=== PATIENT | female | born 1940 | race Hispanic/Latino ===

== ENCOUNTER 2017-10-02 05:33 | Day surgery (SDC) | payer OTHER ==
[2017-10-01 09:10] VITALS: BP 133/63
[2017-10-01 09:31] LABS: HEMATOCRIT 34.8 % (36-48); MEAN CORPUSCULAR HEMOGLOBIN 31.4 pg (27.0-33.0); MEAN CORPUSCULAR HGB CONC 33.8 g/dL (32.0-36.0); MEAN CORPUSCULAR VOLUME 92.8 fL (79-99); PLATELET COUNT (AUTO) 161 K/uL (130-400); RED BLOOD CELL COUNT(AUTO) 3.75 MIL/uL (4.00-5.50); RED CELL DISTRIBUTION WIDTH 13.7 % (11.0-15.5); WHITE BLOOD COUNT (AUTO) 3.3 K/uL (4.8-10.8)
[2017-10-01 09:39] LABS: POTASSIUM 4.6 mmol/L (3.5-5.1)
[2017-10-01 09:41] LABS: INR 0.99 (0.85-1.15); PARTIAL THROMBOPLASTIN TIME 28.4 SEC (26.3-35.5); PROTHROMBIN TIME 10.4 SEC (9.6-11.6)
[2017-10-01 09:49] LABS: APPEARANCE,URINE Clear (CLEAR); BILIRUBIN,URINE Negative (NEGATIVE); COLOR,URINE Yellow (YELLOW); GLUCOSE, URINE (UA) Negative (NEGATIVE); KETONES,URINE Negative (NEGATIVE); LEUKOCYTE ESTERASE ,URINE Large (NEGATIVE); NITRATE,URINE Negative (NEGATIVE); OCCULT BLOOD,URINE Small (NEGATIVE); PH,URINE 7.5 (5.0-8.0); PROTEIN,URINE Negative (NEGATIVE); UROBILINOGEN,URINE 0.2 mg/dL (0.2-1.0)
[2017-10-01 10:09] LABS: BACTERIA,URINE Rare /HPF (None Seen); RBC,URINE 0-1 /HPF (0-1); SQUAMOUS EPITHELIAL CELL,UR Rare /HPF (0-2)
[~2017-10-02] VITALS: Ht 142.2 cm; Wt 55.5 kg
[2017-10-02] VITALS (20 sets, daily range): BP systolic 104–144; BP diastolic 47–85
[~2017-10-02 05:33] MED LIST: LISI-613 PO; PRAV40TA3 PO
[2017-10-02] MEDS ORDERED: GENTAMICIN SULFATE 160 MG in SODIUM CHLORIDE 0.9% 100 ML IV PRN (06:00)
[2017-10-02] MEDS ORDERED: LACTATED RINGERS 1000ML 1,000 ML IV ONE (06:15)
[2017-10-02] MEDS ORDERED: ISOVUE-370 50ML VIAL IV ONE (06:32)
[2017-10-02] MEDS ORDERED: LIDOCAINE PF 2% 5ML ABBOJECT ONE (06:55)
[2017-10-02] MEDS ORDERED: ONDANSETRON HCL 4 MG/2 ML VIAL ONE (06:55)
[2017-10-02] MEDS ORDERED: PROPOFOL 10 MG/ML 20ML VIAL IV ONE (06:55)
[2017-10-02] MEDS ORDERED: MIDAZOLAM HCL 1 MG/ML 2ML VIAL ONE (06:55)
[2017-10-02] MEDS ORDERED: FENTANYL CITRATE PF 50 MCG/1 ML 2ML VIAL ONE (06:55)
[2017-10-02] MEDS ORDERED: DEXAMETHASONE SOD PHOSPHATE 10MG/ML 1ML VIAL ONE (06:55)
[2017-10-02] MEDS ORDERED: GLYCOPYRROLATE 0.2 MG/ML 5 ML VIAL ONE (06:55)
[2017-10-02] MEDS ORDERED: EPHEDRINE SULFATE 50 MG/ML AMPULE ONE (07:02)
== END 2017-10-02 12:15 | disposition home or self-care (01) ==
LOC: DAH 05:33
PROVIDERS: ATTEND Urology
DX: N13.0 Hydronephrosis with ureteropelvic junction obstruction (principal); Z88.8 Allergy status to other drugs, medicaments and biological substances; Z79.899 Other long term (current) drug therapy; I10 Essential (primary) hypertension; M79.7 Fibromyalgia; M19.90 Unspecified osteoarthritis, unspecified site; R00.1 Bradycardia, unspecified; Z88.2 Allergy status to sulfonamides; I45.10 Unspecified right bundle-branch block
CPT/HCPCS: 36415; 52332; 71046; 74176; 74420; 80048; 81001; 85027; 85610; 85730; 87088; 93005; A4344; A4354; A4358; A4930; C1758; C1769; C2617; J1100; J2001; J2250; J2405; J2704; J3010; J3490 ×2; J7120 ×2; Q9967

== ENCOUNTER 2018-03-05 05:40 | Day surgery (SDC) | payer OTHER ==
[2018-03-04 17:18] LABS: APPEARANCE,URINE SL CLOUDY (CLEAR); BILIRUBIN,URINE NEGATIVE (NEGATIVE); COLOR,URINE YELLOW (YELLOW); GLUCOSE, URINE (UA) NEGATIVE (NEGATIVE); KETONES,URINE NEGATIVE (NEGATIVE); LEUKOCYTE ESTERASE ,URINE LARGE (NEGATIVE); NITRATE,URINE NEGATIVE (NEGATIVE); OCCULT BLOOD,URINE MODERATE (NEGATIVE); PH,URINE 6.5 (5.0-8.0); PROTEIN,URINE TRACE (NEGATIVE); UROBILINOGEN,URINE 0.2 mg/dL (0.2-1.0)
[2018-03-04 17:18] LABS: HEMATOCRIT 39.8 % (36-48); MEAN CORPUSCULAR HEMOGLOBIN 31.3 pg (27.0-33.0); MEAN CORPUSCULAR HGB CONC 33.5 g/dL (32.0-36.0); MEAN CORPUSCULAR VOLUME 93.5 fL (79-99); PLATELET COUNT (AUTO) 187 K/uL (130-400); RED BLOOD CELL COUNT(AUTO) 4.26 MIL/uL (4.00-5.50); WHITE BLOOD COUNT (AUTO) 5.2 K/uL (4.8-10.8)
[2018-03-04 17:20] VITALS: BP 148/78
[2018-03-04 17:26] LABS: CREATININE 0.9 mg/dL (0.5-1.5); POTASSIUM 4.3 mmol/L (3.5-5.1)
[2018-03-04 17:30] LABS: INR 0.98 (0.85-1.15); PARTIAL THROMBOPLASTIN TIME 28.7 SEC (26.3-35.5); PROTHROMBIN TIME 10.3 SEC (9.6-11.6)
[2018-03-04 17:40] LABS: BACTERIA,URINE Few /HPF (None Seen); SQUAMOUS EPITHELIAL CELL,UR Few /HPF (0-2); WBC,URINE 26-50 /HPF (0-1)
[~2018-03-05] VITALS: Ht 142.2 cm; Wt 49.6 kg
[2018-03-05] VITALS (16 sets, daily range): BP systolic 98–122; BP diastolic 47–56
[~2018-03-05 05:40] MED LIST changes: +GENTAMICIN SULFATE 160 MG in SODIUM CHLORIDE 0.9% 100 ML IV SCH; +LACTATED RINGERS 1000ML 1,000 ML IV SCH
[2018-03-05] MEDS ORDERED: [UNRECOGNIZED DRUG - OTHER] IV ONE (06:04)
[2018-03-05] MEDS ORDERED: GENTAMICIN IV ONE (06:04)
[2018-03-05] MEDS ORDERED: GENTAMICIN 80 MG/NS 100 ML PB 100 ML IV ONE (06:37)
[2018-03-05] MEDS ORDERED: IOHEXOL-350 75 ML VIAL IV ONE (06:47)
[2018-03-05] MEDS ORDERED: ONDANSETRON HCL 4 MG/2 ML VIAL ONE (06:55)
[2018-03-05] MEDS ORDERED: DEXAMETHASONE SOD PHOSPHATE 10MG/ML 1ML VIAL ONE (06:55)
[2018-03-05] MEDS ORDERED: MIDAZOLAM HCL 1 MG/ML 2ML VIAL ONE (06:55)
[2018-03-05] MEDS ORDERED: LIDOCAINE PF 2% 5ML ABBOJECT ONE (06:55)
[2018-03-05] MEDS ORDERED: PROPOFOL 10 MG/ML 20ML VIAL IV ONE (06:56)
[2018-03-05] MEDS ORDERED: EPHEDRINE SULFATE 50 MG/ML AMPULE ONE (07:16)
== END 2018-03-05 10:05 | disposition home or self-care (01) ==
LOC: DAH 05:40
PROVIDERS: ATTEND Urology
DX: N13.30 Unspecified hydronephrosis (principal); Z88.8 Allergy status to other drugs, medicaments and biological substances; Z79.899 Other long term (current) drug therapy; I10 Essential (primary) hypertension; M54.5 Low back pain; Z98.890 Other specified postprocedural states
CPT/HCPCS: 36415; 52332; 71046; 74176; 80048; 81001; 85027; 85610; 85730; 87088 ×2; 88300; 93005; A4344; A4358; A4600; A5113; C1758; C1769; C2617; J1100; J1580 ×2; J2001; J2250; J2405; J2704; J3490; J7120 ×2; Q9967

== ENCOUNTER 2018-09-03 09:37 | Day surgery (SDC) | payer OTHER ==
[2018-08-30 09:31] VITALS: BP 139/69
[2018-08-30 09:47] LABS: HEMATOCRIT 37.2 % (36-48); MEAN CORPUSCULAR HEMOGLOBIN 31.3 pg (27.0-33.0); MEAN CORPUSCULAR HGB CONC 33.3 g/dL (32.0-36.0); MEAN CORPUSCULAR VOLUME 94.1 fL (79-99); PLATELET COUNT (AUTO) 170 K/uL (130-400); RED BLOOD CELL COUNT(AUTO) 3.96 MIL/uL (4.00-5.50); RED CELL DISTRIBUTION WIDTH 14.3 % (11.0-15.5); WHITE BLOOD COUNT (AUTO) 3.7 K/uL (4.8-10.8)
[2018-08-30 09:49] LABS: APPEARANCE,URINE Clear (CLEAR); BILIRUBIN,URINE Negative (NEGATIVE); COLOR,URINE Yellow (YELLOW); GLUCOSE, URINE (UA) Negative (NEGATIVE); KETONES,URINE Negative (NEGATIVE); LEUKOCYTE ESTERASE ,URINE Moderate (NEGATIVE); NITRATE,URINE Negative (NEGATIVE); OCCULT BLOOD,URINE Nonhemolyzed Trace (NEGATIVE); PROTEIN,URINE Negative (NEGATIVE); UROBILINOGEN,URINE 0.2 mg/dL (0.2-1.0)
[2018-08-30 09:51] LABS: BACTERIA,URINE Rare /HPF (None Seen); RBC,URINE 0-1 /HPF (0-1); SQUAMOUS EPITHELIAL CELL,UR Rare /HPF (0-2)
[2018-08-30 10:00] LABS: CREATININE 0.9 mg/dL (0.5-1.5)
[2018-08-30 10:06] LABS: INR 0.97 (0.85-1.15); PARTIAL THROMBOPLASTIN TIME 28.6 SEC (26.3-35.5); PROTHROMBIN TIME 10.2 SEC (9.6-11.6)
--- NOTE | 2018-09-02 09:31 | NUR ---
labs abnormal labs faxed to dr. real, message left with Elise . pending call back if any further orders.
--- NOTE | 2018-09-02 09:34 | NUR ---
ekg abnormal ekg reported to dr. cardoso. message left on his cell phone, pending call back
--- NOTE | 2018-09-02 10:28 | NUR ---
EKG PER DR. AMAIRANI QUINTERO TO PROCEED WITH SX,NO FURTHER ORDERS GIVEN
--- NOTE | 2018-09-02 13:00 | NUR ---
LABS DR. COOK REVIEWED LABS, NO FURTHER ORDERS GIVEN AT THIS TIME
[2018-09-03] VITALS (14 sets, daily range): BP systolic 103–132; BP diastolic 51–67
[~2018-09-03] VITALS: Ht 144.8 cm; Wt 47.8 kg
[2018-09-03] MEDS: LACTATED RINGERS 1000ML 1,000 ML IV SCH ×2 (06:00→11:36)
[~2018-09-03 09:37] MED LIST changes: -LACTATED RINGERS 1000ML 1,000 ML IV SCH; +vitamin b PO
[2018-09-03] MEDS ORDERED: GENTAMICIN IV ONE (11:23)
[2018-09-03] MEDS ORDERED: [UNRECOGNIZED DRUG - OTHER] IV ONE (11:23)
[2018-09-03] MEDS ORDERED: IOHEXOL-350 50ML VIAL IV ONE (11:24)
[2018-09-03] MEDS ORDERED: PROPOFOL 10 MG/ML 20ML VIAL IV ONE (11:56)
[2018-09-03] MEDS ORDERED: LIDOCAINE HCL MPF 1% 5ML VIAL ONE (11:56)
[2018-09-03] MEDS ORDERED: FENTANYL CITRATE PF 50 MCG/1 ML 2ML VIAL ONE (11:56)
[2018-09-03] MEDS ORDERED: EPHEDRINE SULFATE 50 MG/ML AMPULE ONE (12:07)
[2018-09-03] MEDS ORDERED: ONDANSETRON HCL 4 MG/2 ML VIAL ONE (12:08)
--- NOTE | 2018-09-03 14:34 | NUR ---
D/C PATIENT LEFT VIA WHEELCHAIR IN PVT CAR AND RX SCRIPT GIVEN TO
--- NOTE | 2018-09-03 14:35 | NUR ---
F/U APPT. WAS INSTRUCTED TO CALL OFFICE TO MAKE F/U APPT WITH DR. COOK IN 4 WEEKS.
== END 2018-09-03 14:30 | disposition home or self-care (01) ==
LOC: SUH 09:37 → DAH 09:37 → SUH 14:30
PROVIDERS: ATTEND Urology
DX: N13.0 Hydronephrosis with ureteropelvic junction obstruction (principal); Z88.0 Allergy status to penicillin; Z88.8 Allergy status to other drugs, medicaments and biological substances; Z88.2 Allergy status to sulfonamides; Z79.899 Other long term (current) drug therapy; Z98.890 Other specified postprocedural states; I10 Essential (primary) hypertension; I45.10 Unspecified right bundle-branch block; Z79.01 Long term (current) use of anticoagulants
CPT/HCPCS: 36415; 52332; 71046; 74420; 80048; 81001; 85027; 85610; 85730; 87088; 93005; A4344; A4354; A4358; A4600; A5113; C1758 ×2; C1769 ×2; C2617; J1580; J2405; J2704; J3010; J3490 ×2; J7120; Q9967

== ENCOUNTER 2019-03-04 10:22 | Day surgery (SDC) | payer OTHER ==
[2019-03-03 10:35] VITALS: BP 121/61
[2019-03-03 10:36] LABS: HEMATOCRIT 38.2 % (36-48); MEAN CORPUSCULAR HGB CONC 33.3 g/dL (32.0-36.0); NUCLEATED RED BLOOD CELLS 0.1 % (0.0-0.19); PLATELET COUNT (AUTO) 142 K/uL (130-400); RED BLOOD CELL COUNT(AUTO) 3.98 MIL/uL (4.00-5.50); RED CELL DISTRIBUTION WIDTH 14.9 % (11.0-15.5); WHITE BLOOD COUNT (AUTO) 3.3 K/uL (4.8-10.8)
--- NOTE | 2019-03-03 10:59 | NUR ---
ALLERGY CALLED TO [facility] MESSAGE LEFT WITH ANN, INFORM HER THAT PATIENT IS ALLERGIC TO AUGUMENTIN AND HE ORDERED ANCEF PREOP. PER PHARMACIST THEY ARE WITHIN SAME FAMILY. PATIENT STATES AUGMENTIN MAKES HER SOB AND PARALYSIS. AWAITING FOR FURTHER ORDERS
--- NOTE | 2019-03-03 11:00 | NUR ---
EKG ABNORMAL EKG REPORTED TO , NO FURTHER ORDERS GIVEN, OK TO PROCEED WITH PLANNED SX
[2019-03-03 11:05] LABS: CREATININE 0.9 mg/dL (0.5-1.5); INR 0.93 (0.85-1.15); PARTIAL THROMBOPLASTIN TIME 25.2 SEC (26.3-35.5); POTASSIUM 4.7 mmol/L (3.5-5.1); PROTHROMBIN TIME 9.8 SEC (9.6-11.6)
[2019-03-03 12:02] LABS: APPEARANCE,URINE Clear (CLEAR); BILIRUBIN,URINE Negative (NEGATIVE); COLOR,URINE Yellow (YELLOW); GLUCOSE, URINE (UA) Negative (NEGATIVE); KETONES,URINE Negative (NEGATIVE); LEUKOCYTE ESTERASE ,URINE Moderate (NEGATIVE); NITRATE,URINE Negative (NEGATIVE); OCCULT BLOOD,URINE Negative (NEGATIVE); PH,URINE >=9.0 (5.0-8.0); PROTEIN,URINE POS 1+ mg/dL (NEGATIVE); UROBILINOGEN,URINE 0.2 mg/dL (0.2-1.0)
[2019-03-03 12:24] LABS: BACTERIA,URINE Rare /HPF (None Seen); SQUAMOUS EPITHELIAL CELL,UR Rare /HPF (0-2)
--- NOTE | 2019-03-03 14:15 | NUR ---
LABS FAXED ABNORMAL UA/CBC RESULTS TO JOSÉ MIGUEL AT DR. RIOS'S OFFICE. SHE WILL INFORM DR. COOK.
[2019-03-04] VITALS (16 sets, daily range): BP systolic 116–143; BP diastolic 52–78
[~2019-03-04] VITALS: Ht 139.7 cm; Wt 48.3 kg
[~2019-03-04 10:22] MED LIST changes: +CEFAZOLIN SODIUM 1 GM VIAL IVP SCH; +GENTAMICIN 80 MG/NS 100 ML PB 100 ML IV SCH; -GENTAMICIN SULFATE 160 MG in SODIUM CHLORIDE 0.9% 100 ML IV SCH; -vitamin b PO
[2019-03-04] MEDS: LACTATED RINGERS 1000ML 1,000 ML IV SCH ×2 (11:56→13:15)
[2019-03-04] MEDS ORDERED: IOHEXOL-350 50ML VIAL IV ONE (12:00)
[2019-03-04] MEDS ORDERED: LIDOCAINE PF 2% 5ML ABBOJECT ONE (12:36)
[2019-03-04] MEDS ORDERED: ONDANSETRON HCL 4 MG/2 ML VIAL ONE (12:37)
[2019-03-04] MEDS ORDERED: PROPOFOL 10 MG/ML 20ML VIAL IV ONE (12:37)
[2019-03-04] MEDS ORDERED: MIDAZOLAM HCL 1 MG/ML 2ML VIAL ONE (12:37)
[2019-03-04] MEDS ORDERED: ROCURONIUM 10MG/1ML SYR 10 MG/ML ML ONE (12:38)
[2019-03-04] MEDS ORDERED: FENTANYL CITRATE PF 50 MCG/1 ML 2ML VIAL ONE (12:39)
[2019-03-04] MEDS ORDERED: EPHEDRINE SULFATE 50 MG/ML AMPULE ONE (12:51)
== END 2019-03-04 14:43 | disposition home or self-care (01) ==
LOC: DAH 10:22
PROVIDERS: ATTEND Urology
DX: N13.2 Hydronephrosis with renal and ureteral calculous obstruction (principal); I10 Essential (primary) hypertension; K21.9 Gastro-esophageal reflux disease without esophagitis; Z88.2 Allergy status to sulfonamides; Z88.1 Allergy status to other antibiotic agents; Z88.8 Allergy status to other drugs, medicaments and biological substances; Z79.899 Other long term (current) drug therapy; Z82.49 Family history of ischemic heart disease and other diseases of the circulatory system; Z83.3 Family history of diabetes mellitus
CPT/HCPCS: 36415; 52332; 71046; 74420; 80048; 81001; 85027; 85610; 85730; 87088 ×2; 93005; A4215; A4221; A4222; A4223; A4354; A4600; A4663; A4930; A6260; C1758; C1769 ×2; C2617; J1580; J2001; J2250; J2405; J2704; J3010; J3490; J7030; J7120; Q9967

== ENCOUNTER 2020-10-05 11:09 | Day surgery (SDC) | payer OTHER ==
[2020-10-01 09:50] VITALS: BP 172/63
[2020-10-01 10:34] LABS: HEMATOCRIT 37.6 % (36-48); MEAN CORPUSCULAR HEMOGLOBIN 31.5 pg (27.0-33.0); MEAN CORPUSCULAR HGB CONC 31.9 g/dL (32.0-36.0); MEAN CORPUSCULAR VOLUME 98.7 fL (79-99); RED BLOOD CELL COUNT(AUTO) 3.81 MIL/uL (4.00-5.50); RED CELL DISTRIBUTION WIDTH 13.2 % (11.0-15.5); WHITE BLOOD COUNT (AUTO) 5.3 K/uL (4.8-10.8)
[2020-10-01 10:38] LABS: APPEARANCE,URINE Cloudy (CLEAR); BILIRUBIN,URINE Negative (NEGATIVE); COLOR,URINE Yellow (YELLOW); GLUCOSE, URINE (UA) Negative (NEGATIVE); KETONES,URINE Trace mg/dL (NEGATIVE); LEUKOCYTE ESTERASE ,URINE Large (NEGATIVE); NITRATE,URINE Positive (NEGATIVE); OCCULT BLOOD,URINE Negative (NEGATIVE); PH,URINE 7.5 (5.0-8.0); PROTEIN,URINE POS 1+ mg/dL (NEGATIVE); UROBILINOGEN,URINE 0.2 mg/dL (0.2-1.0)
[2020-10-01 10:41] LABS: INR 1.05 (0.85-1.15); PROTHROMBIN TIME 11.4 SEC (9.6-11.6)
[2020-10-01 10:43] LABS: PARTIAL THROMBOPLASTIN TIME 27.8 SEC (26.3-35.5)
[2020-10-01 10:47] LABS: ALBUMIN 3.7 g/dL (3.5-5.0); BILIRUBIN,TOTAL 0.5 mg/dL (0.2-1.0); CREATININE 0.9 mg/dL (0.5-1.5); POTASSIUM 4.2 mmol/L (3.5-5.1)
[2020-10-01 11:42] LABS: BACTERIA,URINE Many /HPF (None Seen); RBC,URINE 0-1 /HPF (0-1)
[2020-10-05] VITALS (17 sets, daily range): BP systolic 110–144; BP diastolic 57–83
[~2020-10-05] VITALS: Ht 152.4 cm; Wt 50.3 kg
[~2020-10-05 11:09] MED LIST changes: +ASPI-1026 PO; -CEFAZOLIN SODIUM 1 GM VIAL IVP SCH; -GENTAMICIN 80 MG/NS 100 ML PB 100 ML IV SCH; -LISI-613 PO; +LISI20TA24 PO
[2020-10-05] MEDS ORDERED: LACTATED RINGERS 1000ML 1,000 ML IV ONE (12:13)
[2020-10-05] MEDS ORDERED: SUCCINYLCHOLINE 200MG/10ML SYR ONE (12:40)
[2020-10-05] MEDS ORDERED: LIDOCAINE PF 100MG/5ML (2%) SYRINGE 5ML ONE (12:40)
[2020-10-05] MEDS ORDERED: PROPOFOL 10 MG/ML 20ML VIAL IV ONE (12:41)
[2020-10-05] MEDS ORDERED: LACTATED RINGERS 1000ML 1,000 ML IV SCH (13:00)
[2020-10-05] MEDS ORDERED: GENTAMICIN SULFATE IV SCH (13:00)
[2020-10-05] MEDS ORDERED: [UNRECOGNIZED DRUG - OTHER] IV SCH (13:00)
[2020-10-05] MEDS ORDERED: IOHEXOL-350 50ML VIAL IV ONE (13:02)
[2020-10-05] MEDS ORDERED: GLYCOPYRROLATE 1 MG/5 ML SYRINGE ONE (13:08)
[2020-10-05] MEDS ORDERED: ONDANSETRON 4MG INJ ONE (13:38)
[2020-10-05] MEDS ORDERED: DOXY100C2 PO (15:07)
== END 2020-10-05 16:30 | disposition home or self-care (01) ==
LOC: DAH 11:09
PROVIDERS: ATTEND Urology
DX: N13.2 Hydronephrosis with renal and ureteral calculous obstruction (principal); E78.5 Hyperlipidemia, unspecified; I10 Essential (primary) hypertension; K21.9 Gastro-esophageal reflux disease without esophagitis; Z79.01 Long term (current) use of anticoagulants; Z88.1 Allergy status to other antibiotic agents; Z88.2 Allergy status to sulfonamides; Z79.899 Other long term (current) drug therapy; Z20.822 Contact with and (suspected) exposure to COVID-19
CPT/HCPCS: 36415; 52332; 71046; 74420; 80053; 81001; 82043; 85027; 85610; 85730; 87071; 87088; 87205; 87635; 93005; A4215; A4221; A4222; A4223; A4358; A4663; A6260; C1758; C1769; C9803; J0330; J1580; J2001; J2405; J2704; J3490; J7120 ×2; Q9967

== ENCOUNTER 2021-03-15 11:17 | Day surgery (SDC) | payer OTHER ==
[2021-03-11 17:18] LABS: HEMATOCRIT 38.2 % (36-48); MEAN CORPUSCULAR HGB CONC 32.2 g/dL (32.0-36.0); MEAN CORPUSCULAR VOLUME 96.2 fL (79-99); RED BLOOD CELL COUNT(AUTO) 3.97 MIL/uL (4.00-5.50); RED CELL DISTRIBUTION WIDTH 13.2 % (11.0-15.5); WHITE BLOOD COUNT (AUTO) 4.2 K/uL (4.8-10.8)
[2021-03-11 17:30] LABS: INR 1.05 (0.85-1.15); PROTHROMBIN TIME 11.4 SEC (9.6-11.6)
[2021-03-11 17:31] LABS: PARTIAL THROMBOPLASTIN TIME 29.6 SEC (26.3-35.5)
[2021-03-11 17:34] LABS: ALBUMIN 3.8 g/dL (3.5-5.0); BILIRUBIN,TOTAL 0.4 mg/dL (0.2-1.0); POTASSIUM 4.4 mmol/L (3.5-5.1)
[2021-03-14 11:05] VITALS: BP 166/69
[~2021-03-15] VITALS: Ht 152.4 cm; Wt 45.3 kg
[2021-03-15] VITALS (14 sets, daily range): BP systolic 121–147; BP diastolic 54–70
[2021-03-15] MEDS: [UNRECOGNIZED DRUG - OTHER] IV SCH ×2 (05:00→15:25)
[2021-03-15] MEDS: GENTAMICIN SULFATE IV SCH ×2 (05:00→15:25)
[~2021-03-15 11:17] MED LIST changes: +AEC81 PO; -ASPI-1026 PO; +GABAPENTIN PO; +MEMA5TAB42 PO; +MV-M1TAB20 PO
[2021-03-15] MEDS ORDERED: LACTATED RINGERS 1000ML 1,000 ML IV ONE (11:59)
[2021-03-15] MEDS ORDERED: GABA100C PO (12:06)
[2021-03-15] MEDS ORDERED: IOHEXOL-350 50ML VIAL IV ONE (12:47)
[2021-03-15 12:52] LABS: APPEARANCE,URINE Turbid (CLEAR); BILIRUBIN,URINE Negative (NEGATIVE); COLOR,URINE Yellow (YELLOW); GLUCOSE, URINE (UA) Negative (NEGATIVE); KETONES,URINE 15 mg/dL (NEGATIVE); LEUKOCYTE ESTERASE ,URINE Large (NEGATIVE); NITRATE,URINE Negative (NEGATIVE); OCCULT BLOOD,URINE Moderate (NEGATIVE); PH,URINE 6.5 (5.0-8.0); PROTEIN,URINE POS 1+ mg/dL (NEGATIVE); UROBILINOGEN,URINE 0.2 mg/dL (0.2-1.0)
[2021-03-15 13:14] LABS: BACTERIA,URINE Many /HPF (None Seen); WBC,URINE TNTC /HPF (0-1)
[2021-03-15] MEDS ORDERED: LIDOCAINE PF 100MG/5ML (2%) SYRINGE 5ML ONE (13:34)
[2021-03-15] MEDS ORDERED: PROPOFOL 10 MG/ML 20ML VIAL IV ONE (13:35)
[2021-03-15] MEDS ORDERED: FENTANYL CITRATE PF 50 MCG/1 ML 2ML VIAL ONE ×2 (13:35→15:12)
[2021-03-15] MEDS ORDERED: MIDAZOLAM HCL 1 MG/ML 2ML VIAL ONE (15:11)
[2021-03-15] MEDS ORDERED: GLYCOPYRROLATE 1 MG/5 ML SYRINGE ONE (15:12)
[2021-03-15] MEDS ORDERED: FLUCONAZOLE 200 MG/NS 100 ML 100 ML IV SCH (16:00)
== END 2021-03-15 17:36 | disposition home or self-care (01) ==
LOC: DAH 11:17
PROVIDERS: ATTEND Urology
DX: N13.2 Hydronephrosis with renal and ureteral calculous obstruction (principal); I10 Essential (primary) hypertension; E78.5 Hyperlipidemia, unspecified; I45.10 Unspecified right bundle-branch block; Z88.1 Allergy status to other antibiotic agents; Z88.0 Allergy status to penicillin; Z88.2 Allergy status to sulfonamides; Z88.6 Allergy status to analgesic agent; Z20.822 Contact with and (suspected) exposure to COVID-19; Z79.01 Long term (current) use of anticoagulants; Z79.899 Other long term (current) drug therapy
CPT/HCPCS: 36415; 52332; 71046; 74420; 80053; 81001; 85027; 85610; 85730; 87088; 87635; 93005; A4215; A4221; A4222; A4223; A4354; A4358; A4663; A4930; C1758; C1769; C9803; J1450; J1580; J2001; J2250; J2704; J3010; J3490; J7120; Q9967

== ENCOUNTER 2021-11-01 05:33 | Day surgery (SDC) | payer OTHER ==
[2021-10-31 10:04] LABS: HEMATOCRIT 36.4 % (36-48); MEAN CORPUSCULAR HEMOGLOBIN 30.5 pg (27.0-33.0); MEAN CORPUSCULAR HGB CONC 32.1 g/dL (32.0-36.0); MEAN CORPUSCULAR VOLUME 94.8 fL (79-99); RED BLOOD CELL COUNT(AUTO) 3.84 MIL/uL (4.00-5.50); RED CELL DISTRIBUTION WIDTH 13.7 % (11.0-15.5); WHITE BLOOD COUNT (AUTO) 3.4 K/uL (4.8-10.8)
[2021-10-31 10:07] LABS: APPEARANCE,URINE TURBID (CLEAR); BILIRUBIN,URINE NEGATIVE (NEGATIVE); COLOR,URINE STRAW (YELLOW); GLUCOSE, URINE (UA) NEGATIVE (NEGATIVE); KETONES,URINE NEGATIVE (NEGATIVE); LEUKOCYTE ESTERASE ,URINE LARGE (NEGATIVE); NITRATE,URINE POSITIVE (NEGATIVE); OCCULT BLOOD,URINE TRACE-INTACT (NEGATIVE); PH,URINE 7.5 (5.0-8.0); PROTEIN,URINE NEGATIVE (NEGATIVE); UROBILINOGEN,URINE 0.2 mg/dL (0.2-1.0)
[2021-10-31 10:15] LABS: INR 0.99 (0.85-1.15); PROTHROMBIN TIME 10.8 SEC (9.6-11.6)
[2021-10-31 10:16] LABS: PARTIAL THROMBOPLASTIN TIME 27.1 SEC (26.3-35.5)
[2021-10-31 10:19] LABS: ALBUMIN 3.7 g/dL (3.5-5.0); CREATININE 1.2 mg/dL (0.5-1.5); POTASSIUM 4.4 mmol/L (3.5-5.1); TOTAL PROTEIN, SERUM 6.7 g/dL (6.0-8.3)
[2021-10-31 10:28] LABS: RBC,URINE 0-1 /HPF (0-1)
[2021-10-31 10:29] LABS: BACTERIA,URINE Few /HPF (None Seen)
[2021-10-31 12:48] VITALS: BP 144/69
[2021-11-01] VITALS (15 sets, daily range): BP systolic 118–147; BP diastolic 47–68
[~2021-11-01] VITALS: Ht 152.4 cm; Wt 47.2 kg
[~2021-11-01 05:33] MED LIST changes: -AEC81 PO; +GABA100C PO; -GABAPENTIN PO; -MV-M1TAB20 PO
[2021-11-01] MEDS ORDERED: LACTATED RINGERS 1000ML 1,000 ML IV SCH (06:00)
[2021-11-01] MEDS ORDERED: [UNRECOGNIZED DRUG - OTHER] IV SCH (06:00)
[2021-11-01] MEDS ORDERED: GENTAMICIN SULFATE IV SCH (06:00)
[2021-11-01] MEDS ORDERED: FAMOTIDINE 20MG VIAL IV ONE (06:48)
[2021-11-01] MEDS ORDERED: PROPOFOL 10 MG/ML 20ML VIAL IV ONE (06:51)
[2021-11-01] MEDS ORDERED: ROCURONIUM 10MG/1ML SYR 10 MG/ML ML ONE (06:51)
[2021-11-01] MEDS ORDERED: IOHEXOL-350 50ML VIAL IV ONE (07:09)
[2021-11-01] MEDS ORDERED: ONDANSETRON 4MG INJ ONE (07:23)
[2021-11-01] MEDS ORDERED: FENTANYL CITRATE PF 50 MCG/1 ML 2ML VIAL ONE (07:24)
== END 2021-11-01 09:50 | disposition home or self-care (01) ==
LOC: DAH 05:33
PROVIDERS: ATTEND Urology
DX: N13.2 Hydronephrosis with renal and ureteral calculous obstruction (principal); I10 Essential (primary) hypertension; Z79.01 Long term (current) use of anticoagulants; Z79.899 Other long term (current) drug therapy
CPT/HCPCS: 80053; 85027; 85610; 85730; 87088; 81001 ×2; 36415; 71046; 93005; 52332; 87635; 74420; A4663; A4606; A4344; C1758 ×2; A4354; J7120; J3490; J3010; J1580; J2704; J2405; Q9967; A4358; C1769; A4215; A4223; A4222; A4221

== ENCOUNTER 2022-05-09 09:47 | Day surgery (SDC) | payer OTHER ==
[2022-05-04 11:13] LABS: HEMATOCRIT 39.3 % (36-48); MEAN CORPUSCULAR HEMOGLOBIN 30.3 pg (27.0-33.0); MEAN CORPUSCULAR HGB CONC 32.1 g/dL (32.0-36.0); MEAN CORPUSCULAR VOLUME 94.5 fL (79-99); RED BLOOD CELL COUNT(AUTO) 4.16 MIL/uL (4.00-5.50); RED CELL DISTRIBUTION WIDTH 13.2 % (11.0-15.5); WHITE BLOOD COUNT (AUTO) 4.3 K/uL (4.8-10.8)
[2022-05-04 11:22] LABS: PROTHROMBIN TIME 10.9 SEC (9.6-11.6)
[2022-05-04 11:23] LABS: PARTIAL THROMBOPLASTIN TIME 28.2 SEC (26.3-35.5)
[2022-05-04 11:26] LABS: ALBUMIN 3.6 g/dL (3.5-5.0); CREATININE 0.9 mg/dL (0.5-1.5); POTASSIUM 3.8 mmol/L (3.5-5.1)
[2022-05-08 11:02] VITALS: BP 151/67
[~2022-05-09] VITALS: Ht 142.2 cm; Wt 48.0 kg
[2022-05-09] VITALS (15 sets, daily range): BP systolic 102–134; BP diastolic 45–57
[~2022-05-09 09:47] MED LIST changes: +GENTAMICIN SULFATE IV SCH; +[UNRECOGNIZED DRUG - OTHER] IV SCH
[2022-05-09 11:20] LABS: APPEARANCE,URINE TURBID (CLEAR); BILIRUBIN,URINE NEGATIVE (NEGATIVE); COLOR,URINE LIGHT-ORANGE (YELLOW); GLUCOSE, URINE (UA) NEGATIVE (NEGATIVE); KETONES,URINE 5 mg/dL (NEGATIVE); LEUKOCYTE ESTERASE ,URINE 500 Leu/uL (NEGATIVE); NITRATE,URINE 2+ (NEGATIVE); OCCULT BLOOD,URINE LARGE (NEGATIVE); PROTEIN,URINE 30 mg/dL (NEGATIVE); UROBILINOGEN,URINE 0.2 mg/dL (0.2-1.0)
[2022-05-09 12:04] LABS: BACTERIA,URINE Moderate /HPF (None Seen); TRIPLE PHOSPHATE CRYSTAL,UR Rare /LPF (None Seen)
[2022-05-09] MEDS ORDERED: LACTATED RINGERS 1000ML 1,000 ML IV ONE (12:09)
[2022-05-09] MEDS ORDERED: ASPI-1443 PO (12:14)
[2022-05-09] MEDS ORDERED: IOHEXOL-350 50ML VIAL IV ONE ×2 (12:42→12:54)
[2022-05-09] MEDS ORDERED: DEXAMETHASONE SOD PHOSPHATE 10MG/ML 1ML VIAL ONE (12:54)
[2022-05-09] MEDS ORDERED: SUCCINYLCHOLINE 200MG/10ML SYR ONE (12:54)
[2022-05-09] MEDS ORDERED: LIDOCAINE PF 100MG/5ML (2%) SYRINGE 5ML ONE (12:54)
[2022-05-09] MEDS ORDERED: MIDAZOLAM HCL 1 MG/ML 2ML VIAL ONE (12:54)
[2022-05-09] MEDS ORDERED: PROPOFOL 10 MG/ML 20ML VIAL IV ONE (12:55)
[2022-05-09] MEDS ORDERED: ONDANSETRON 4MG INJ ONE (12:55)
[2022-05-09] MEDS ORDERED: EPHEDRINE SULFATE 50 MG/ML AMPULE ONE (13:10)
[2022-05-09 14:13] LABS: APPEARANCE,URINE CLOUDY (CLEAR); BILIRUBIN,URINE NEGATIVE (NEGATIVE); COLOR,URINE LIGHT-BROWN (YELLOW); GLUCOSE, URINE (UA) NEGATIVE (NEGATIVE); KETONES,URINE NEGATIVE (NEGATIVE); LEUKOCYTE ESTERASE ,URINE 500 Leu/uL (NEGATIVE); NITRATE,URINE NEGATIVE (NEGATIVE); OCCULT BLOOD,URINE LARGE (NEGATIVE); PROTEIN,URINE 30 mg/dL (NEGATIVE); UROBILINOGEN,URINE 0.2 mg/dL (0.2-1.0)
[2022-05-09 14:27] LABS: BACTERIA,URINE RARE /HPF (None Seen); MUCUS,URINE RARE LPF (None Seen); RBC,URINE TNTC /HPF (0-1); SQUAMOUS EPITHELIAL CELL,UR RARE /HPF (0-2); WBC,URINE 26-50 /HPF (0-1); YEAST,URINE BUDDING FEW /HPF (None Seen)
== END 2022-05-09 15:05 | disposition home or self-care (01) ==
LOC: DAH 09:47
PROVIDERS: ATTEND Urology
DX: N13.2 Hydronephrosis with renal and ureteral calculous obstruction (principal); Z20.822 Contact with and (suspected) exposure to COVID-19; Z79.01 Long term (current) use of anticoagulants; Z88.8 Allergy status to other drugs, medicaments and biological substances; Z88.1 Allergy status to other antibiotic agents; Z88.2 Allergy status to sulfonamides; Z79.899 Other long term (current) drug therapy; Z79.82 Long term (current) use of aspirin
CPT/HCPCS: 80053; 85027; 85610; 85730; 87426; 71046; 93005; 52332; 87088; 81001 ×2; 36415; 74420; A6260; A4663; A4606; C2617; C1758; J7120; J0330; J1100; J2001; J3490; J1580; J2250; J2704; J2405; Q9967; A4358; C1769; A4930; A4215; A4223; A4222; A4221

== ENCOUNTER 2022-11-28 05:36 | Day surgery (SDC) | payer OTHER ==
[2022-11-22 08:51] VITALS: BP 161/63; PULSE 48; RESP 17
[2022-11-22 08:54] LABS: HEMATOCRIT 36.7 % (36-48); MEAN CORPUSCULAR HEMOGLOBIN 30.2 pg (27.0-33.0); MEAN CORPUSCULAR HGB CONC 31.9 g/dL (32.0-36.0); MEAN CORPUSCULAR VOLUME 94.8 fL (79-99); RED BLOOD CELL COUNT(AUTO) 3.87 MIL/uL (4.00-5.50); RED CELL DISTRIBUTION WIDTH 14.6 % (11.0-15.5)
[2022-11-22 09:03] LABS: APPEARANCE,URINE CLEAR (CLEAR); BILIRUBIN,URINE NEGATIVE (NEGATIVE); COLOR,URINE LIGHT-YELLOW (YELLOW); GLUCOSE, URINE (UA) NEGATIVE (NEGATIVE); KETONES,URINE NEGATIVE (NEGATIVE); LEUKOCYTE ESTERASE ,URINE 500 Leu/uL (NEGATIVE); NITRATE,URINE NEGATIVE (NEGATIVE); OCCULT BLOOD,URINE NEGATIVE (NEGATIVE); PROTEIN,URINE NEGATIVE (NEGATIVE); UROBILINOGEN,URINE 0.2 mg/dL (0.2-1.0)
[2022-11-22 09:07] LABS: INR 0.97 (0.85-1.15); PROTHROMBIN TIME 11.3 SEC (9.6-11.6)
[2022-11-22 09:08] LABS: ALBUMIN 3.3 g/dL (3.5-5.0); BILIRUBIN,TOTAL 0.5 mg/dL (0.2-1.0); CREATININE 0.9 mg/dL (0.5-1.5); PARTIAL THROMBOPLASTIN TIME 29.3 SEC (26.3-35.5); TOTAL PROTEIN, SERUM 6.4 g/dL (6.0-8.3)
[2022-11-22 09:11] LABS: OTHER CASTS, URINE 1 /LPF (None Seen); SQUAMOUS EPITHELIAL CELL,UR RARE /HPF (0-2)
[~2022-11-28] VITALS: Ht 142.2 cm; Wt 47.9 kg
[2022-11-28] VITALS (17 sets, daily range): BP systolic 117–141; BP diastolic 66–83; PULSE 73–95; RESP 14–16
[~2022-11-28 05:36] MED LIST changes: +ASPI-1443 PO; +DONE5TAB33 PO; -GENTAMICIN SULFATE IV SCH; +GINK120C PO; -[UNRECOGNIZED DRUG - OTHER] IV SCH
[2022-11-28] MEDS ORDERED: LACTATED RINGERS 1000ML 1,000 ML IV ONE (05:51)
[2022-11-28] MEDS ORDERED: [UNRECOGNIZED DRUG - OTHER] IV ONE (06:13)
[2022-11-28] MEDS ORDERED: GENTAMICIN IV ONE (06:13)
[2022-11-28] MEDS ORDERED: PROPOFOL 10 MG/ML 20ML VIAL IV ONE (06:33)
[2022-11-28] MEDS ORDERED: FENTANYL CITRATE PF 50 MCG/1 ML 2ML VIAL ONE (06:33)
[2022-11-28] MEDS ORDERED: LIDOCAINE PF 100MG/5ML (2%) SYRINGE 5ML ONE (06:33)
[2022-11-28] MEDS ORDERED: SUCCINYLCHOLINE 200MG/10ML SYR ONE (06:37)
[2022-11-28] MEDS ORDERED: ROCURONIUM 10MG/1ML SYR 10 MG/ML ML ONE (06:38)
[2022-11-28] MEDS ORDERED: GLYCOPYRROLATE 1 MG/5 ML SYRINGE ONE (06:39)
[2022-11-28] MEDS ORDERED: FLUCONAZOLE 400 MG/NS 200 ML 200 ML IV ONE (06:45)
[2022-11-28] MEDS ORDERED: IOHEXOL-350 50ML VIAL IV ONE ×2 (06:55→07:02)
[2022-11-28] MEDS ORDERED: EPHEDRINE SULFATE 50 MG/ML AMPULE ONE (07:01)
== END 2022-11-28 09:10 | disposition home or self-care (01) ==
LOC: DAH 05:36
PROVIDERS: ATTEND Urology
DX: N13.2 Hydronephrosis with renal and ureteral calculous obstruction (principal); I10 Essential (primary) hypertension; G30.9 Alzheimer's disease, unspecified; F02.80 Dementia in other diseases classified elsewhere, unspecified severity, without behavioral disturbance, psychotic disturbance, mood disturbance, and anxiety; Z88.1 Allergy status to other antibiotic agents; Z88.8 Allergy status to other drugs, medicaments and biological substances; Z79.82 Long term (current) use of aspirin; Z79.899 Other long term (current) drug therapy; Z98.890 Other specified postprocedural states
CPT/HCPCS: 93005; 80053; 85027; 85610; 85730; 87088; 81001; 36415; 71046; 52332; 74420; A4663; J7120 ×2; C2617; A4354; C1758; J0330; J3490 ×2; J2001; J1450; J2704; J1580; Q9967 ×2; A4358; C1769 ×2; A4215; A4223; A4222; A4221; J3010

== ENCOUNTER → 2024-10-29 | Outpatient (CLI) | payer OTHER ==
[~2024-10-29] MED LIST changes: -GINK120C PO; +GINK120C3 PO; +MEMA5TAB16 PO; -MEMA5TAB42 PO; -PRAV40TA3 PO; +PRAV40TA62 PO
--- NOTE | 2024-10-30 10:32 | HMCIMG ---
EXAM: CT Abdomen and Pelvis without IV contrast. CLINICAL HISTORY: Renal calculus. TECHNIQUE: Thin collimated axial CT images of the abdomen and pelvis were obtained, with sagittal and coronal reformatted images also submitted. A CT scan is done according to ALARA (As Low As Reasonably Achievable). CONTRAST: None. COMPARISON: CT scan of the abdomen and pelvis. 03/04/2018. FINDINGS: 3.0 x 1.5 cm subpleural nodule in the superior segment of the right lower lobe of the lung, which has possibly increased in size. 6 mm noncalcified nodule in the right middle lobe. Mild chronic interstitial lung changes bilaterally. There is no focal abnormality appreciated within the liver, pancreas, spleen, or adrenals. The gallbladder is distended with multiple small calculi within. There is a 2 cm splenunculus. Small atrophic right kidney with a DJ stent. The stent is in place. 2 mm calculus in the upper pole of the left kidney. There is no obvious bowel wall thickening. Bowel loops are normal in caliber without evidence of obstruction or ileus. Mild constipation. The appendix is unremarkable. There is no abnormality within the urinary bladder. Unremarkable reproductive organs. No lymphadenopathy. No free fluid. No pneumoperitoneum. There is patchy atherosclerotic calcification of the aorta and its major branches. There is no acute osseous abnormality. Osteopenia. Thoracolumbar spondylosis. Moderate dextroscoliosis of the thoracolumbar spine. IMPRESSIONS: 1. Cholelithiasis. An interval increase in the number of gallstones as compared to the prior CT scan. 2. Small atrophic right kidney with a right ureteral stent in place. Interval reduction in the right hydronephrosis. 3. Nonobstructive left renal calculus. 4. 3.0 x 1.5 cm subpleural nodule in the superior segment of the right lower lobe of the lung, which has possibly increased in size. 6 mm noncalcified nodule in the right middle lobe. Mild chronic interstitial lung changes bilaterally. A CT chest is recommended. /Nita
== END | disposition home or self-care (01) ==
LOC: RAH 12:39
PROVIDERS: ATTEND Urology
DX: K80.20 Calculus of gallbladder without cholecystitis without obstruction (principal); N26.1 Atrophy of kidney (terminal); N13.2 Hydronephrosis with renal and ureteral calculous obstruction; R91.1 Solitary pulmonary nodule; J98.4 Other disorders of lung; K59.00 Constipation, unspecified; I70.0 Atherosclerosis of aorta; J84.9 Interstitial pulmonary disease, unspecified; M85.88 Other specified disorders of bone density and structure, other site; M47.815 Spondylosis without myelopathy or radiculopathy, thoracolumbar region; M41.85 Other forms of scoliosis, thoracolumbar region
CPT/HCPCS: 74176

== ENCOUNTER 2024-11-18 11:44 | Day surgery (SDC) | payer OTHER ==
--- NOTE | 2024-11-14 09:14 | EKG ---
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
[2024-11-14 09:43] LABS: NUCLEATED RED BLOOD CELLS 0.0 % (0.0-0.19); PLATELET COUNT (AUTO) 185.0 K/uL (130-400); RED BLOOD CELL COUNT(AUTO) 4.27 MIL/uL (4.00-5.50); RED CELL DISTRIBUTION WIDTH 13.4 % (11.0-15.5); WHITE BLOOD COUNT (AUTO) 3.4 K/uL (4.8-10.8)
[2024-11-14 09:52] VITALS: BP 141/74; PULSE 58; RESP 17; TEMP 98.4
[2024-11-14 09:52] LABS: INR 1.03 (0.85-1.15)
[2024-11-14 09:56] LABS: ASPARTATE AMINOTRANSFERASE 23.0 U/L (10-37); CREATININE 1.0 mg/dL (0.5-1.0); GLOMERULAR FILTR. RATE CALC 56.0 mL/min (>90); GLUCOSE,RANDOM 96.0 mg/dL (70-105); SODIUM SERUM 144.0 mmol/L (136-145); TOTAL PROTEIN, SERUM 6.5 g/dL (6.0-8.3); UREA NITROGEN, BLOOD 19.0 mg/dL (7-18)
--- NOTE | 2024-11-17 09:30 | NUR ---
RE: RONALDO CALLED DR COOK'S OFFICE AND SPOKE WITH ANN. INFORMED HER THAT PATIENT WASN'T ABLE TO PROVIDE URINE SAMPLE WHEN SHE CAME IN TO PREOP. PER ANN, HAVE PATIENT COME IN TODAY TO PROVIDE URINE SAMPLE. CALLED PATIENT'S SON AND INSTRUCTED HIM TO BRING IN PATIENT TODAY TO COLLECT URINE SAMPLE.
--- NOTE | 2024-11-17 13:00 | NUR ---
RE: UA PATIENT CAME IN TODAY SO THAT WE COULD ATTEMPT TO COLLECT URINE SAMPLE. PATIENT AGAIN WAS UNABLE TO GIVE URINE SAMPLE. WILL TRY TO COLLECT ON DAY OF SURGERY .
--- NOTE | 2024-11-17 14:22 | HP ---
CHIEF COMPLAINT: Right matrix stone with double-J stent. HISTORY OF PRESENT ILLNESS: The patient is an 84-year-old female, matrix stone right side, managed with double-J stent, electing to have double-J stent only be her treatment and scheduled for change to double-J stent. All risks, benefits, alternatives, and potential complications of procedure were carefully reviewed with the patient. Her concerns and questions were answered. She did request the appropriate informed consent. The patient currently is in the care of her son who was power of director report and who also has provided consent for change of double-J stent. ALLERGIES: AUGMENTIN, CELEBREX, CIPRO, AND SULFA. MEDICATIONS: Donepezil, gabapentin, ginkgo biloba, lisinopril, memantine, pravastatin, and Marie-Ester. PAST SURGICAL HISTORY: Significant for multiple double-J stent changes as well as eye implant bilaterally. ADDITIONAL PAST MEDICAL HISTORY: Alzheimer disease, noncompliance; adult failure to thrive, and hypertension. FAMILY HISTORY: Negative. 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 She does not smoke or drink. REVIEW OF SYSTEMS: She has no shortness of breath or chest pain. Appetite is good. No nausea, vomiting, constipation, or diarrhea. No headaches, dizziness, or nosebleeds. She has some difficulty walking. No joint pain, joint swelling, or limitation of movement, night sweats, fever, chills, or skin rash. PHYSICAL EXAM: GENERAL: Thin elderly female wheelchair bound. HEENT: Head atraumatic and normocephalic. Pupils are equal and reactive to light and accommodation. Extraocular movements are intact. No discharge from ears, nose, or throat. CHEST: Lung monzon are clear to auscultation. HEART: Heart sounds are best heard in the fifth intercostal space. ABDOMEN: Full, soft, and nontender. No masses. BACK: No CVA tenderness. RECTAL: Deferred. EXTREMITIES: Show no cyanosis, clubbing, or edema. NEUROLOGIC: The patient has Alzheimer disease, not oriented to time, place, or person. Cranial nerves are grossly intact. No gross motor or sensory deficits. IMPRESSION: * Right matrix stone. * Right double-J stent. * Alzheimer disease. PROPOSED SURGICAL SERIES: Double-J stent right side, for which the patient will provide full informed consent. No guarantees are given. She did obtain medical clearance from her PCP as well. TID: [id number] RECEIPT: [id number]
[~2024-11-18] VITALS: Ht 149.9 cm; Wt 44.6 kg
[2024-11-18] VITALS (13 sets, daily range): BP systolic 99–141; BP diastolic 50–68; PULSE 50–97; RESP 14–18; TEMP 96.9–97.7
[~2024-11-18 11:44] MED LIST changes: +ALEN70TA80 PO; +ERGO500093 PO; +FOLI1TAB85 PO; +GABA-529 PO; -GABA100C PO
[2024-11-18] MEDS ORDERED: FAMOTIDINE 20MG VIAL IV ONE (12:17)
[2024-11-18] MEDS ORDERED: LIDOCAINE PF 100MG/5ML (2%) SYRINGE 5ML ONE (12:22)
[2024-11-18] MEDS: LACTATED RINGERS 1000ML 1,000 ML IV ONE (13:00)
[2024-11-18 13:12] LABS: APPEARANCE,URINE CLOUDY (CLEAR); GLUCOSE, URINE (UA) NEGATIVE (NEGATIVE); LEUKOCYTE ESTERASE ,URINE 500 Leu/uL (NEGATIVE); NITRATE,URINE NEGATIVE (NEGATIVE); OCCULT BLOOD,URINE LARGE (NEGATIVE)
[2024-11-18 13:20] LABS: SQUAMOUS EPITHELIAL CELL,UR FEW /HPF (0-2)
[2024-11-18] MEDS ORDERED: GLYCOPYRROLATE 0.2 MG/ML 5 ML VIAL ONE (14:42)
[2024-11-18] MEDS: ISOVUE-370 50ML VIAL IV ONE (14:50)
[2024-11-18] MEDS ORDERED: IOHEXOL-350 50ML VIAL IV ONE (15:30)
--- NOTE | 2024-11-18 16:12 | OP ---
DATE OF PROCEDURE: 11/18/2024 PREOPERATIVE DIAGNOSIS: Right hydronephrosis secondary to matrix stone, status post double-J stent placement. PROCEDURE PERFORMED: Right-sided ureteric stent placement, double-J, 7-Montenegrin, 22 cm with drainage of right hydronephrosis, 90 mL. POSTOPERATIVE DIAGNOSIS: Right hydronephrosis secondary to matrix stone, status post double-J stent placement. ANESTHESIA: General anesthesia. COMPLICATIONS: None. DRAINS: A 7-Montenegrin, 22 cm double-J stent on the right-hand side. INDICATIONS FOR PROCEDURE: An 84-year-old female with matrix stone, right side, managed with double-J stent, scheduled for change of double-J stent. All risks, benefits, alternatives, and potential complications were reviewed with the patient, concerns answered, did request to proceed and did provide fully informed consent. FINDINGS: Bladder neck and urethra coapt poorly. Bladder mucosa is smooth. Distal curl of double-J stent with debris identified. At retrograde pyelography, 90 mL of clear urine identified, right hydronephrosis. DESCRIPTION OF PROCEDURE: The patient was duly identified. Informed consent was confirmed. Timeout was taken. She was then brought to the operating room and placed supine on the table. After adequate hemodynamic monitoring had been established by Anesthesiology, the patient underwent smooth induction of general anesthesia by Anesthesiology. Next, she was placed in a dorsal lithotomy position and her genitalia were now thoroughly prepped and draped in the usual fashion, and rigid cystoscopy was then performed. The findings are listed above. A foreign body grasper was utilized to engage distal curl of double-J stent, brought out the urethral meatus. A 0.03 guidewire was advanced up to the renal pelvis on the right side with some difficulty. The stent was exchanged out. An open-ended catheter was then advanced over the wire. The wire was removed. [place] drip was obtained. Retrograde pyelography showed no extravasation and delineation of the renal pelvis was achieved. Next, the wire was reintroduced over the ureteral catheter. Ureteral catheter was exchanged out. The wire was backloaded on the cystoscope and over the wire through the cystoscope was advanced a 7-Montenegrin, 22 cm double-J up to the renal pelvis on the right side. The wire was removed with a satisfactory curve in renal pelvis above and bladder below. The bladder was not emptied completely. KUB confirmed good position of stent. The patient was awakened from anesthesia and transferred from the operating room to recovery room in good stable and hemodynamically satisfactory condition having experienced no complications. TID: [id number] RECEIPT: [id number]
--- NOTE | 2024-11-20 13:58 | HMCIMG ---
OR RETROGRADE PYELOGRAM INDICATION: Exchange of right-sided ureteral stent COMPARISON: None. FINDINGS: A total of 4 fluoroscopic spot images were obtained for placement of a right-sided double-J ureteral stent. No hydronephrosis or hydroureter is detected. The catheter is in satisfactory position. There is levoscoliosis of the upper lumbar spine. IMPRESSION: Details of the finding in the procedure notes
== END 2024-11-18 16:30 | disposition home or self-care (01) ==
LOC: DAH 11:44
PROVIDERS: ATTEND Urology
DX: N13.1 Hydronephrosis with ureteral stricture, not elsewhere classified (principal); I45.10 Unspecified right bundle-branch block; E78.5 Hyperlipidemia, unspecified; I12.9 Hypertensive chronic kidney disease with stage 1 through stage 4 chronic kidney disease, or unspecified chronic kidney disease; N18.9 Chronic kidney disease, unspecified; F02.80 Dementia in other diseases classified elsewhere, unspecified severity, without behavioral disturbance, psychotic disturbance, mood disturbance, and anxiety; G30.9 Alzheimer's disease, unspecified; Z88.0 Allergy status to penicillin; Z88.1 Allergy status to other antibiotic agents; Z88.8 Allergy status to other drugs, medicaments and biological substances; Z88.2 Allergy status to sulfonamides; Z88.6 Allergy status to analgesic agent; Z79.899 Other long term (current) drug therapy
CPT/HCPCS: 80053; 85027; 85610; 85730; 36415; 93005; 52332; 82570; 87070; 87071; 87076; 87086; 87205; 82043; 81001; 74420; A4223 ×2; A4600; A4510; A6260; A4663; J7030; C2617; C1758; J7120; Q9967 ×2; J3490 ×3; J1100; J2003; J1450; J2704; J2405; J1580 ×2; A4358; A4649; C1769 ×2; A4215; A4222; A4221; A4216